=== PATIENT | female | born 2000 | race Caucasian/White ===

== ENCOUNTER 2024-10-06 03:20 | Emergency (ER) | payer SELFPAY ==
[2024-10-06 03:40] VITALS: BP 117/73
[2024-10-06 04:31] LABS: Hematocrit 39.1 % (37.0-47.0); Hemoglobin 13.2 g/dL (12.0-16.0); Mean Corp Hgb Conc. 33.8 g/dL (33.0-37.0); Mean Corpuscular Volume 80.1 fL (81.0-99.0); Mean Platelet Volume 10.3 fL (7.4-10.4); Platelet Count 274 10^3/uL (130-400); Red Blood Cell Count 4.88 10^6/uL (4.20-5.40); Red Cell Dist. Width 12.8 % (11.5-14.5); White Blood Cell Count 4.9 10^3/uL (4.8-10.8)
[2024-10-06 04:35] LABS: HCG, Serum Qualitative Screen Negative
[2024-10-06 04:43] LABS: ALT (SGPT) 30 U/L (0-35); AST (SGOT) 23 U/L (14-36); Albumin 4.4 g/dl (3.5-5.0); Alkaline Phosphatase 62 U/L (38-126); Blood Urea Nitrogen 9 mg/dl (7-17); Calcium 10.5 mg/dl (8.4-10.2); Carbon Dioxide 20 mmol/L (22-30); Chloride 106 mmol/L (98-107); Glucose 121 mg/dl (70-99); Sodium 140 mmol/L (135-145); Total Bilirubin 0.5 mg/dl (0.2-1.3); Total Protein 7.3 g/dl (6.3-8.2); eGFR > 60.00
[2024-10-06 04:59] LABS: Absolute Neutrophils -Man Diff 2.5 10^3/uL (1.4-6.5); Atypical Lymphocytes 7 %; Band Neutrophils 1 % (0-3); Lymphocytes 39 % (20-51); Monocytes 1 % (2-9); Normal RBC Morphology Yes; Platelets Checked Yes; Segmented Neutrophils 52 % (42-75); Total Cells Counted 100
[2024-10-06 05:01] VITALS: BMI 41.8
--- NOTE | 2024-10-06 06:10 | ED.GENMED ---
History of Present Illness
General
Chief Complaint: Bowel Problem
Source: patient and family (Mother contributes to history)
Exam Limitations: none
Time Seen by Provider: 10/06/24 06:08
Nursing documentation reviewed up to this point in time: agreed with
History of Present Illness
History of Present Illness:
23-year-old female presents Emergency Department due to being constipated for 1 week. She has vomiting, and had diarrhea recently. She has a saline enema at home without results. She has had nausea with intermittent vomiting for 3 days.
Past History
Past History
ED Past Medical History: None
ED Past Surgical History: Tonsilectomy (And adenoids)
Social History
Tobacco: Vaping
Alcohol: None
Drug: None
Personal: Single
Living: with family
Review of Systems
Review of Systems
Allergies reviewed?: Yes
All Other Systems: Not applicable
Constitutional: Reports no symptoms
EENT: Reports runny nose
Respiratory: Reports cough
Cardiac: Reports no symptoms
ABD/GI: Reports abdominal pain, vomiting and constipated
: Reports no symptoms
Musculoskeletal: Reports no symptoms
Skin: Reports no symptoms
Neurological: Reports no symptoms
Endocrine: Reports no symptoms
Hematologic/Lymphatic: Reports no symptoms
Psychiatric: Reports no symptoms
Phy Exam
Physical Exam
Physical Exam:
Physical Exam
General: no apparent distress, not acutely ill
Neck: supple. no meningeal signs. normal posterior pharynx
Heart: s1/s2 regular rate and rhythm, no murmur. equal radial
pulses.
HEENT: Pupils equal round reactive to light, EOMI
Lungs: no acute respiratory distress. clear bilaterally
Abdomen: normal bowel sounds. not tender. no CVAT, rectal exam no stool in vault
Neuro: alert and oriented. no focal neurological deficits cranial nerves II through XII intact
Skin: no rash
Psychiatric: well kept. interactive and cooperative
Extremities: no edema. no calf tenderness. negative homans. good distal pulses
Course
Orders/Labs/Results
Orders:
Orders
10/06/24 03:49
Test Result ONCE
10/06/24 04:00
Complete Blood Count/With Diff Urgent
Comprehensive Metabolic Panel Urgent
HCG, Serum Qualitative Screen Urgent
Manual Differential Urgent
10/06/24 04:07
Obstruct Series W/PA Chest [CR Obstruct Series W/pa Chest] Urgent
Comment:
Reason For Exam: abd pain with severe constipation
10/06/24 06:34
Enema- Treatment ONCE
Type: Milk of Molasses
Abnormal Lab Results
10/06/24
04:00
MCV 80.1 L fL
(81.0-99.0)
Monocytes (Manual) 1 L %
(2-9)
Carbon Dioxide 20 L mmol/L
(22-30)
Glucose 121 H mg/dl
(70-99)
Calcium 10.5 H mg/dl
(8.4-10.2)
10/06/24 04:00
10/06/24 04:00
Vital Signs
Initial and Last Documented VS:
Initial Vital Signs
Temp Pulse Resp BP Pulse Ox
98.5 F 77 20 117/73 99
10/06/24 03:40 10/06/24 03:40 10/06/24 03:40 10/06/24 03:40 10/06/24 03:40
Last Documented Vital Signs
Temp Pulse Resp BP Pulse Ox
98.8 F 76 18 146/87 95
10/06/24 08:42 10/06/24 08:42 10/06/24 06:48 10/06/24 08:42 10/06/24 08:42
MDM/Problems Addressed
Differential Diagnosis Includes:
Bowel obstruction, diverticulitis
MDM/Problems Addressed:
23-year-old female with constipation and abdominal pain. Do not suspect bowel obstruction or appendicitis. Improved after bowel movement and enema in ED.
*Radiology
Radiology exam reviewed: preliminary read by ED provider (abd series: nad, moderate stool)
*Pulse Oximetry
Patient hypoxic: no
*Critical Care Note
Total Time (30-74mins, 75-104mins- exclusive of procedures): Not Applicable
ED Attending Note
-
Portions of this chart may have been created with voice recognition software.� Occasional wrong word or��sound alike� substitutions may have occurred due to the inherent limitations of voice recognition software.
Discharge Plan
Departure
Patient Disposition: Home (Routine Discharge)
Date of Disposition: 10/06/24
Time of Disposition: 08:21
Patient with high blood pressure during this ER visit?: Yes
Condition: Good
Discharge Problem:
Abdominal pain, Constipation
Instructions: Constipation, Adult (DC), Abdominal Pain, BLOOD PRESSURE
Referrals:
NONE,* [Family Provider] -
Activity Restrictions/Additional Instructions:
Follow up with primary care. Return for any concerns. Use miralax, 1 scoop daily for 1 week.
Interventions
Interventions:
*Risk Screen - Suicide Last Done: 10/06/24 03:40
*General Assessment Last Done: 10/06/24 05:01
*Neglect/Abuse Screening Last Done: 10/06/24 05:01
*ED COVID-19 Vaccine History Last Done: 10/06/24 05:01
*Nursing Disposition Last Done: 10/06/24 08:42
AR-Lehswq-Sctmbsqnhw Assessment Last Done: 10/06/24 04:43
Discharge Date and Time
Discharge Date/Time: 10/06/24 08:44
Print Language: YAKUT
[2024-10-06 06:48] VITALS: BP 134/81
[2024-10-06 08:42] VITALS: BP 146/87
== END 2024-10-06 08:44 | disposition home or self-care (01) ==
LOC: EMR 03:20
PROVIDERS: EMERGENCY PHYSICIAN Emergency Medicine
DX: R10.9 Unspecified abdominal pain (principal); K59.00 Constipation, unspecified; F17.290 Nicotine dependence, other tobacco product, uncomplicated
CPT/HCPCS: 99283; 74022; 80053; 84703; 85025